=== PATIENT | male | born 1940 | race Caucasian/White ===

== ENCOUNTER 2018-01-28 07:26 | Day surgery (SDC) | payer MEDICARE ==
[~2018-01-28 07:26] MED LIST: ACETAMINOPHEN 325 MG TAB PO
[2018-01-28] MEDS: CYCLOPENTOLATE 2% OPHTH SOLN 2ML BTL OD (09:13)
[2018-01-28] MEDS: TROPICAMIDE 1% OPHTH SOLN 2ML OD (09:13)
[2018-01-28] MEDS: OFLOXACIN 0.3 % (OCUFLOX) OPTH SOL 5ML OD (09:13)
[2018-01-28] MEDS: PHENYLEPHRINE 2.5% OPHTH SOL 2ML OD (09:13)
[2018-01-28] MEDS: LIDOCAINE 3.5 % 1ML OPHTH TOPICAL GEL OU (09:13)
[2018-01-28 09:42] LABS: BEDSIDE GLUCOSE 119 MG/DL (83-110)
[2018-01-28] MEDS ORDERED: MIDAZOLAM INJ 2 MG/2 ML VIAL (J2250) As Ordered (10:41)
[2018-01-28] MEDS ORDERED: fentaNYL 100 MCG/2 ML INJECTION (J3010) As Ordered (10:41)
[2018-01-28] MEDS: POVIDONE-IODINE 5% OPHTH PREP SOL 30ML As Ordered (10:45)
[2018-01-28] MEDS: LIDOCAINE 1% SDV 5 ML VIAL As Ordered (10:45)
[2018-01-28] MEDS: TRIAMCINOLONE PRES FR 40 MG/ML 1ML(TRIESENCE)(OR EYE ONLY)(J3300 PER 1MG) As Ordered (10:45)
[2018-01-28] MEDS: PHENYLEPHRINE HCL 10 % OPHTH. SOL 5ML OD (10:45)
[2018-01-28] MEDS: HEALON DUET (HEALON 10MG/ML 0.55ML & HEALON ENDOCOAT 30MG/ML 0.85ML) As Ordered (10:45)
[2018-01-28] MEDS: BSS with VANC/TOB/EPI for EYE CASES IR (10:45)
[2018-01-28] MEDS: MOXIFLOXACIN IN BSS 0.25MG/0.25ML INTRACAMERAL INJ (OR EYE ONLY)(J2280) As Ordered (10:45)
[2018-01-28] MEDS ORDERED: TRIMETHOBENZAMIDE 300 MG CAP PO (11:15)
[2018-01-28] MEDS: AcetaZOLAMIDE 500 MG ER CAP PO (11:19)
== END 2018-01-28 11:45 | disposition home or self-care (01) ==
LOC: M SDC 07:26
DX: H25.9 Unspecified age-related cataract (principal); I10 Essential (primary) hypertension; E78.5 Hyperlipidemia, unspecified; E11.9 Type 2 diabetes mellitus without complications; Z79.899 Other long term (current) drug therapy; Z79.84 Long term (current) use of oral hypoglycemic drugs
CPT/HCPCS: 66984

== ENCOUNTER 2018-02-04 08:25 | Day surgery (SDC) | payer MEDICARE ==
[2018-02-04] MEDS: BSS with VANC/TOB/EPI for EYE CASES IR (07:00)
[~2018-02-04 08:25] MED LIST changes: +PHENYLEPHRINE HCL 10 % OPHTH. SOL 5ML OS
[2018-02-04] MEDS ORDERED: PHENYLEPHRINE 2.5% OPHTH SOL 2ML As Ordered (08:37)
[2018-02-04] MEDS ORDERED: TROPICAMIDE 1% OPHTH SOLN 2ML As Ordered (08:37)
[2018-02-04] MEDS ORDERED: OFLOXACIN 0.3 % (OCUFLOX) OPTH SOL 5ML As Ordered (08:37)
[2018-02-04] MEDS ORDERED: CYCLOPENTOLATE 2% OPHTH SOLN 2ML BTL As Ordered (08:37)
[2018-02-04] MEDS ORDERED: TRIMETHOBENZAMIDE 300 MG CAP PO (08:45)
[2018-02-04] MEDS: OFLOXACIN 0.3 % (OCUFLOX) OPTH SOL 5ML OS (09:00)
[2018-02-04] MEDS: TROPICAMIDE 1% OPHTH SOLN 2ML OS (09:00)
[2018-02-04] MEDS: LIDOCAINE 3.5 % 1ML OPHTH TOPICAL GEL OU (09:00)
[2018-02-04] MEDS: PHENYLEPHRINE 2.5% OPHTH SOL 2ML OS (09:01)
[2018-02-04] MEDS: CYCLOPENTOLATE 2% OPHTH SOLN 2ML BTL OS (09:01)
[2018-02-04 09:03] LABS: BEDSIDE GLUCOSE 124 MG/DL (83-110)
[2018-02-04] MEDS: POVIDONE-IODINE 5% OPHTH PREP SOL 30ML As Ordered (09:21)
[2018-02-04] MEDS ORDERED: fentaNYL 100 MCG/2 ML INJECTION (J3010) As Ordered (09:21)
[2018-02-04] MEDS ORDERED: MIDAZOLAM INJ 2 MG/2 ML VIAL (J2250) As Ordered (09:21)
[2018-02-04] MEDS: TRIAMCINOLONE PRES FR 40 MG/ML 1ML(TRIESENCE)(OR EYE ONLY)(J3300 PER 1MG) As Ordered (09:21)
[2018-02-04] MEDS: HEALON DUET (HEALON 10MG/ML 0.55ML & HEALON ENDOCOAT 30MG/ML 0.85ML) As Ordered (09:22)
[2018-02-04] MEDS: MOXIFLOXACIN IN BSS 0.25MG/0.25ML INTRACAMERAL INJ (OR EYE ONLY)(J2280) As Ordered (09:22)
[2018-02-04] MEDS: LIDOCAINE 1% SDV 5 ML VIAL As Ordered (09:22)
[2018-02-04] MEDS: AcetaZOLAMIDE 500 MG ER CAP PO (09:57)
== END 2018-02-04 10:20 | disposition home or self-care (01) ==
LOC: M SDC 08:25
DX: H25.9 Unspecified age-related cataract (principal); I10 Essential (primary) hypertension; E11.9 Type 2 diabetes mellitus without complications; Z79.84 Long term (current) use of oral hypoglycemic drugs; Z79.899 Other long term (current) drug therapy; Z85.038 Personal history of other malignant neoplasm of large intestine
CPT/HCPCS: 66984

== ENCOUNTER → 2019-09-06 | Outpatient (REF) | payer MEDICARE ==
[~2019-09-06] MED LIST changes: -ACETAMINOPHEN 325 MG TAB PO; +AMLO10TA5 PO; +BENA40TA5 PO; +HYDR12CA PO; +LOVA40TA PO; +METF500T13 PO; +METO1TAB87 PO; -PHENYLEPHRINE HCL 10 % OPHTH. SOL 5ML OS
[2019-09-07 10:07] LABS: FOLATE 15.1 NG/ML
== END ==
LOC: M LAB REF 16:29
PROVIDERS: ATTEND Internal Medicine
DX: R41.3 Other amnesia (principal)

== ENCOUNTER → 2020-01-21 | Outpatient (CLI) | payer MEDICARE ==
[~2020-01-21] MED LIST changes: -AMLO10TA5 PO; +AMLO1TAB25 PO
[2020-01-21 08:48] LABS: COLLAGEN EPINEPHRINE 80 SECONDS (74-162)
== END ==
LOC: M LAB 06:55
PROVIDERS: ATTEND Ophthalmology
DX: D23.111 Other benign neoplasm of skin of right upper eyelid, including canthus (principal); D23.122 Other benign neoplasm of skin of left lower eyelid, including canthus

== ENCOUNTER → 2020-01-31 | Outpatient (CLI) | payer MEDICARE | LOC: M LABSMTC 11:22 | PROVIDERS: ATTEND Ophthalmology | DX: Z01.818 Encounter for other preprocedural examination (principal); Z11.59 Encounter for screening for other viral diseases; Z20.828 Contact with and (suspected) exposure to other viral communicable diseases | CPT/HCPCS: C9803; U0002 ==

== ENCOUNTER → 2020-03-09 | Outpatient (CLI) | payer MEDICARE ==
[2020-03-09 12:24] LABS: COLLAGEN EPINEPHRINE 80 SECONDS (74-162)
== END ==
LOC: M LAB 11:34
PROVIDERS: ATTEND Ophthalmology
DX: H02.032 Senile entropion of right lower eyelid (principal); D23.22 Other benign neoplasm of skin of left ear and external auricular canal; D23.111 Other benign neoplasm of skin of right upper eyelid, including canthus

== ENCOUNTER → 2020-03-10 | Outpatient (CLI) | payer MEDICARE | LOC: M LABSMTC 10:44 | PROVIDERS: ATTEND Ophthalmology | DX: Z01.812 Encounter for preprocedural laboratory examination (principal) | CPT/HCPCS: C9803; U0003 ==